=== PATIENT | female | born 2000 ===

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

== ENCOUNTER 2021-03-30 10:48 | Emergency (ER) | payer BC ==
[2021-03-30 15:45] LABS: BLOOD UREA NITROGEN,BUN 7 mg/dL (7.0-18.0); CARBON DIOXIDE,CO2 25.6 mmol/L (21.0-32.0); CHLORIDE,CL 105 mmol/L (98-107); GLUCOSE RANDOM 97 mg/dL (74-106); POTASSIUM,K 4.3 mmol/L (3.5-5.1); SODIUM,NA 140 mmol/L (136-145)
--- NOTE | 2021-03-30 16:31 | CT ---
INDICATION: Right eye blurry vision. TECHNIQUE: After standard noncontrast head CT, high resolution axial CT images acquired through the head and neck following rapid intravenous administration of iodinated contrast. Multiplanar MIPS of cranial and cervical vasculature performed. FINDINGS: Noncontrast head CT: There is no intracranial hemorrhage or fluid collection. The kapadia-white matter differentiation is maintained. The ventricles are of normal morphology. The basal cisterns are clear. Mucosal thickening is noted in the right maxillary sinus. A right mastoid effusion is present. CTA head: There is normal filling of the intracranial vasculature; i.e. there is no large vessel occlusion or intracranial stenosis. There is no cerebral aneurysm or evidence for vascular malformation. CTA neck: Both carotid and vertebral arteries have a normal course and caliber. There is no stenosis or dissection. The soft tissues of the neck are within normal limits. The cervical spine is in normal alignment. The lung apices are clear. IMPRESSION: Right maxillary mucosal thickening and right mastoid effusion. Otherwise unremarkable CT head, CTA head and neck. Shaheen West MD [facility] [facility] Please note that all CT scans at this facility use dose modulation, iterative reconstruction, and/or weight-based dosing when appropriate to reduce radiation dose to as low as reasonably achievable. Dictated by Shaheen West MD @ 03/30/2021 4:31:13 PM (Electronically Signed)
[2021-03-30] MEDS ORDERED: Iopamidol 755 MG/ML 500 ML Multipack Bottle IVPUSH STA (16:49)
--- NOTE | 2021-03-30 16:58 | EDM.PDOC ---
ED HPI GENERAL MEDICAL PROBLEM - General Chief Complaint: General Stated Complaint: VISION AND NUMBNESS Time Seen by Provider: 03/30/21 13:36 - History of Present Illness INITIAL COMMENTS - FREE TEXT/NARRATIVE: CHIEF COMPLAINT(S): Right eye blurry vision HISTORY OF PRESENT ILLNESS: This is a 20-year-old woman without any past medical history who comes to the emergency department with a chief complaint of right eye blurry vision. The patient states that this morning she was studying and looking at her phone. She states that when she moved her phone away her right eye vision got fuzzy and blurry to where she could not even see her hand. She states that lasted approximately 1 hour and then it resolved. She states that she then developed a headache on the left side of her head which he describes as throbbing not associated with any numbness, tingling, weakness, trouble walking, speaking, or swallowing. She states that it was mild at onset and has since resolved. She currently rates her pain as 0 out of 10. She states that it was not maximal at onset. She states that that resolved and then she started to develop right sided mouth numbness and tingling which then resolved and then her right thumb started tingling, then that resolved and then each finger [id number] started to tingle and then it extended to her palm and wrist where she had tingling. She states that all of the symptoms have since reso lved. She denies any head injury or loss of consciousness. She denies any current blurry vision or loss of vision. She states that she does not have any history of clotting disorders or any other medical problems. She is denies any family history of rheumatological diseases, multiple sclerosis or myasthenia gravis. She states that she does spend a significant amount of time staring at a computer, book or her phone given that she is studying for calculus 2. She states that she was mainly concerned so she was brought in with her father who is at bedside. REVIEW OF SYSTEMS: Constitutional: Denies fever, chills. Eyes: Denies eye pain Ears, Nose, Mouth, & Throat: Denies earache sore throat, runny nose, congestion, sinus tenderness, tinnitus Cardiovascular: Denies chest pain Respiratory: Denies shortness of breath Gastrointestinal: Denies Nausea, vomiting, diarrhea, hematochezia. Genitourinary: Denies hematuria Skin:Denies a rash MSK: Denies joint pain Neurological: Positive for right-sided blurry vision, numbness of her right mouth, right hand, right wrist and right palm. Denies trouble walking, speaking or swallowing. Psychiatric: Denies depression PAST MEDICAL HISTORY: As per history of present illness and as reviewed below otherwise noncontributory. SURGICAL HISTORY: As per history of present illness and as reviewed below otherwise noncontributory. SOCIAL HISTORY: As per history of present illness and as reviewed below otherwise noncontributory. FAMILY HISTORY: As per history of present illness and as reviewed below otherwise noncontributory. EXAMINATION OF ORGAN SYSTEMS/BODY AREAS: Constitutional: Blood pressure is 105/57, heart rate 64, respiratory rate 16 with an oxygen saturation 98% on room air. Temperature 36.3 General: Well-appearing woman who is in no acute distress Psychiatric: Appropriate mood and affect. Eyes: No scleral icterus or conjunctival erythema pupils were equal round and reactive to light. Extraocular movements were intact. No vertical or horizontal nystagmus. No pain with extraocular movements. No proptosis. ENMT: Moist mucous membranes. No pharyngeal erythema tongue protrudes midline. No stridor, drooling, trismus. Bilateral nasal turbinates are clear without any drainage. Cardiovascular: Regular, rate, and rhythm. No gallops, murmurs, or rubs. Bilateral upper extremity pulses symmetric and intact. No peripheral edema. No JVD. Respiratory: Lungs clear to auscultation bilaterally. No wheezes, rales, or rhonchi. Gastrointestinal: Soft, non-tender, non-distended. Normoactive bowel sounds Genitourinary: No suprapubic tenderness Musculoskeletal: Normal range of motion. Skin: No lesions or abrasions. Neurological: AOx4. CN grossly intact. Strength 5/5 in bilateral upper and lower extremity. Sensation is intact bilaterally in upper and lower extremity. Gait appears normal. Finger to nose, heel to smallwood, rapid alternating movements intact. MEDICAL DECISION MAKING AND COURSE IN THE ED WITH INTERPRETATION/REVIEW OF DIAGNOSTIC STUDIES: This is a 20-year-old woman without any significant past medical history who comes to the emergency department with multiple slightly bizarre complaints including right-sided blurry vision, headache, and intermittent peripheral paresthesias who overall appears well. At this time I did perform a ocular ultrasound to evaluate for papilledema. Ocular ultrasound revealed optic nerve measurement of 0.37 mm which is within normal limits. Patient does not have any red flag symptoms and is currently asymptomatic at this time. Acuity test is normal. It is uncertain as to what is causing this patient's symptoms however we will obtain CBC, CMP, TSH, hCG and obtain CT head and CTA of the head and neck. Differential does include aneurysm. Unlikely retinal vein or artery occlusion given no pain or vision loss. Laboratory: CBC is unremarkable. CMP is unremarkable. TSH is normal. hCG is negative. The radiological images were viewed by myself along with reading the report from the radiologist. CT head without contrast does not reveal any acute intracranial abnormality. CTA of the head and neck does not reveal any large vessel occlusion or intracra nial stenosis. No evidence of aneurysm or vascular malformation. There is right maxillary mucosal thickening and right mastoid effusion. After imaging I did discuss results with the patient. At this time the patient continued to remain stable. I did discuss with her that I had like to start her on antibiotics for the mastoid and maxillary abnormalities on CT. I did discuss strict return precautions with the patient. She was amenable to discharge at this time and had no further questions DISPOSITION: The patient was discharged home in stable condition. The patient will follow up with ophthalmology and primary care physician CONDITION: Fair PROCEDURES: Bedside ocular ultrasound FINAL IMPRESSION(S)/DIAGNOSES: 1. Acute bacterial sinusitis Mehdi Cook M.D. 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 Musculoskeletal History: Reports: None Neurological History: Reports: None Psychiatric History: Reports: None Endocrine/Metabolic History: Reports: None Hematologic History: Reports: None Immunologic History: Reports: None Oncologic (Cancer) History: Reports: None Dermatologic History: Reports: None - Infectious Disease History Infectious Disease History: Reports: None - Past Surgical History Head Surgeries/Procedures: Reports: None Social & Family History - Family History Family Medical History: No Pertinent Family History - Tobacco Use Tobacco Use Status *Q: Never Tobacco User - Caffeine Use Caffeine Use: Reports: None - Recreational Drug Use Recreational Drug Use: No ED ROS GENERAL - Review of Systems Review Of Systems: See Below ED EXAM, GENERAL - Physical Exam Exam: See Below Course - Vital Signs Last Recorded V/S: Last Vital Signs Temp 36.8 C 03/30/21 13:38 Pulse 88 03/30/21 17:10 Resp 16 03/30/21 13:38 BP 97/61 03/30/21 17:10 Pulse Ox 99 03/30/21 17:10 - Orders/Labs/Meds Labs: Laboratory Tests 03/30/21 03/30/21 03/30/21 Range/Units 15:06 15:06 15:06 WBC 11.58 H (4.0-11.0) K/uL RBC 4.80 (4.30-5.90) M/uL Hgb 13.6 (12.0-16.0) g/dL Hct 40.8 (36.0-46.0) % MCV 85.0 (80.0-98.0) fL MCH 28.3 (27.0-32.0) pg MCHC 33.3 (31.0-37.0) g/dL RDW Std Deviation 42.6 (28.0-62.0) fl RDW Coeff of Asad 14 (11.0-15.0) % Plt Count 281 (150-400) K/uL MPV 10.40 (7.40-12.00) fL Neut % (Auto) 81.2 H (48.0-80.0) % Lymph % (Auto) 14.2 L (16.0-40.0) % [place] % (Auto) 4.1 (0.0-15.0) % Eos % (Auto) 0.4 (0.0-7.0) % Baso % (Auto) 0.1 (0.0-1.5) % Neut # (Auto) 9.4 H (1.4-5.7) K/uL Lymph # (Auto) 1.6 (0.6-2.4) K/uL [place] # (Auto) 0.5 (0.0-0.8) K/uL Eos # (Auto) 0.1 (0.0-0.7) K/uL Baso # (Auto) 0.0 (0.0-0.1) K/uL Nucleated RBC % 0.0 /100WBC Nucleated RBCs # 0 K/uL Sodium 140 (136-145) mmol/L Potassium 4.3 (3.5-5.1) mmol/L Chloride 105 (98-107) mmol/L Carbon Dioxide 25.6 (21.0-32.0) mmol/L BUN 7 (7.0-18.0) mg/dL Creatinine 0.7 (0.6-1.0) mg/dL Est Cr Clr Drug Dosing 108.30 mL/min Estimated GFR (MDRD) > 60.0 ml/min Glucose 97 (74-106) mg/dL Calcium 8.5 (8.5-10.1) mg/dL Magnesium 2.2 (1.8-2.4) mg/dL Total Bilirubin 0.4 (0.2-1.0) mg/dL AST 17 (15-37) IU/L ALT 28 (14-63) IU/L Alkaline Phosphatase 68 (46-116) U/L Total Protein 7.3 (6.4-8.2) g/dL Albumin 3.9 (3.4-5.0) g/dL Globulin 3.4 (2.6-4.0) g/dL Albumin/Globulin Ratio 1.1 (0.9-1.6) TSH, Ultra Sensitive 1.09 (0.36-3.74) uIU/mL HCG, Qual NEGATIVE (NEG) Meds: Medications Discontinued Medications Generic Name Dose Route Start Last Admin Trade Name Freq PRN Reason Stop Dose Admin Iopamidol 100 ml 03/30/21 16:49 03/30/21 16:50 Iopamidol 755 Mg/Ml 500 Ml Multipack Bottle IVPUSH 03/30/21 16:50 100 ml ONETIME STA Administration Departure - Departure Time of Disposition: 16:57 Disposition: Home, Self-Care 01 Condition: Fair Clinical Impression: Sinusitis - Discharge Information *PRESCRIPTION DRUG MONITORING PROGRAM REVIEWED*: No *COPY OF PRESCRIPTION DRUG MONITORING REPORT IN PATIENT YANNI: No Prescriptions: Amoxicillin/Clavulanate K [Augmentin 875-125 MG] 1 tab PO BID #14 tablet Instructions: Sinusitis, Adult, [id number] Referrals: PCP,None [Primary Care Provider] - Forms: ED Department Discharge Additional Instructions: You were evaluated today on an emergent basis. At this time all of your work-up was normal except for the CT showing some fluid in your maxillary sinus. This could be a sinus infection therefore I did start you on Augmentin which was sent to your pharmacy. I recommend you take the complete course even if you feel well. As discussed if you have any fever, neck pain, worsening vision changes, vomiting, worsening headache I would like you to return to the emergency department. Otherwise I would like you to follow-up with primary care within 3 to 5 days. In addition it would be useful if you were to follow-up with an software engineering associate manager or ophthalmology for a formal eye exam. [facility] [address] [place] [address] [place] [address] Summers [phone] The patient is informed of any results of their evaluation and diagnostic workup and all questions are answered. They are given discharge instructions and return precautions. The patient is stable for discharge. The patient states they understand and agree with the plan and that they will return if their symptoms get worse or if they have any new concerns. The following information is given to patients seen in the emergency department who are being discharged to home. This information is to outline your options for follow-up care. We provide all patients seen in our emergency department with a follow-up referral. The need for follow-up, as well as the timing and circumstances, are variable depending upon the specifics of your emergency department visit. If you don't have a primary care physician on staff, we will provide you with a referral. We always advise you to contact your personal physician following an emergency department visit to inform them of the circumstance of the visit and for follow-up with them and/or the need for any referrals to a consulting specialist. The emergency department will also refer you to a specialist when appropriate. This referral assures that you have the opportunity for follow-up care with a specialist. All of these measure are taken in an effort to provide you with optimal care, which includes your follow-up. Under all circumstances we always encourage you to contact your private physician who remains a resource for coordinating your care. When calling for follow-up care, please make the office aware that this follow-up is from your recent emergency room visit. If for any reason you are refused follow-up, please contact the [facility] Emergency Department at and asked to speak to the emergency department charge nurse.
== END 2021-03-30 17:10 | disposition home or self-care (01) ==
LOC: MW.ED 10:48
DX: J01.80 Other acute sinusitis (principal); B96.89 Other specified bacterial agents as the cause of diseases classified elsewhere
CPT/HCPCS: 36415; 70450; 70496; 70498; 80053; 83735; 84443; 84703; 85025; 99284; Q9967